=== PATIENT | female | born 1940 | race Caucasian/White ===

== ENCOUNTER 2021-04-08 10:29 | Inpatient (IN) ==
[2021-04-08] MEDS ORDERED: PANTOPRAZOLE 40 MG VIAL IV STA (10:58)
[2021-04-08 11:27] LABS: Basophils % 0.3 % (0.0-0.8); Eosinophils # 0.2 10*3/uL (0.0-0.87); Hematocrit 24.9 VOL% (35.7-47.0); Immature Granulocytes % 0.4 %; Immature Granulocytes Absolute 0.04 #; Lymphocytes # 1.2 10*3/uL (1.4-4.0); Lymphocytes % 13.5 % (21.3-54.2); Mean Corpuscular HGB Conc 32.1 GM/DL (32-36); Mean Corpuscular Volume 93.3 FL (87-102); Mean Platelet Volume 10.1 FL (9.6-12.0); Monocytes % 6.6 % (1.7-12.7); Neutrophils % 77.2 % (38.7-73.9); Platelet Count 233 T/CUMM (130-400); Red Blood Count 2.67 MC/CUMM (3.8-5.5); Red Cell Distribution Width 13.2 % (9.3-17.3); White Blood Count 8.9 T/CUMM (4-12)
[2021-04-08 11:49] LABS: Albumin 2.7 G/DL (3.4-5.0); Bilirubin,Total 0.5 MG/DL (0.20-1.00); Calcium 7.8 MG/DL (8.5-10.1); Osmolality,Calculated 293.1 MOS/KG (273-304); Potassium 3.8 MMOL/L (3.5-5.1); Total Protein 5.7 G/DL (6.4-8.2)
[2021-04-08 13:19] LABS: INR 1.1; Partial Thromboplastin Time 26.2 SECS (23.9-33.8)
[2021-04-08] MEDS ORDERED: GLUCAGON 1 MG VIAL IM PRN (14:34)
[2021-04-08] MEDS ORDERED: DEXTROSE 50% 25 GM/50 ML VIAL IV PRN (14:34)
[2021-04-08] MEDS ORDERED: BISACODYL 5 MG TABLET PO PRN (14:34)
[2021-04-08] MEDS ORDERED: ACETAMINOPHEN 325 MG TABLET PO PRN (14:34)
[2021-04-08] MEDS: ONDANSETRON 4 MG/2 ML VIAL IV PRN (15:49)
[2021-04-08] MEDS ORDERED: SODIUM CHLORIDE 0.9% 1,000 ML IV PRN (16:05)
[2021-04-08 18:07] LABS: Hemoglobin 7.1 GM/DL (12.0-16.0)
[2021-04-08] MEDS: SODIUM CHLORIDE 0.45% 1,000 ML IV SCH (18:17)
[2021-04-08 18:43] LABS: Folate 11.45 NG/ML (5.38-24.0)
[2021-04-08] MEDS: PANTOPRAZOLE 40 MG VIAL IV SCH (20:20)
[2021-04-09 05:31] LABS: Basophils % 0.4 % (0.0-0.8); Eosinophils # 0.2 10*3/uL (0.0-0.87); Hemoglobin 8.4 GM/DL (12.0-16.0); Immature Granulocytes % 0.5 %; Immature Granulocytes Absolute 0.04 #; Lymphocytes # 1.7 10*3/uL (1.4-4.0); Lymphocytes % 22.9 % (21.3-54.2); Mean Corpuscular HGB Conc 32.3 GM/DL (32-36); Mean Corpuscular Volume 93.2 FL (87-102); Mean Platelet Volume 10.4 FL (9.6-12.0); Monocytes % 10.6 % (1.7-12.7); Neutrophils % 62.6 % (38.7-73.9); Platelet Count 201 T/CUMM (130-400); Red Blood Count 2.79 MC/CUMM (3.8-5.5); Red Cell Distribution Width 13.8 % (9.3-17.3); White Blood Count 7.4 T/CUMM (4-12)
[2021-04-09 05:58] LABS: Calcium 7.8 MG/DL (8.5-10.1); Potassium 3.8 MMOL/L (3.5-5.1)
[2021-04-09 06:40] LABS: Hematocrit 27.5 VOL% (35.7-47.0); Hemoglobin 8.7 GM/DL (12.0-16.0)
[2021-04-09] MEDS ORDERED: NON-FORMULARY MEDICATION (Nebivolol [Bystolic] 20 mg Tablet) PO SCH (09:00)
[2021-04-09] MEDS: LEVOTHYROXINE 100 MCG TABLET PO SCH (10:24)
[2021-04-09] MEDS: SODIUM CHLORIDE 0.45% 1,000 ML IV SCH ×2 (10:25→20:30)
[2021-04-09] MEDS: PANTOPRAZOLE 40 MG VIAL IV SCH ×2 (10:25→20:18)
[2021-04-09] MEDS ORDERED: hydrALAZINE 20 MG/1 ML VIAL IV PRN (14:24)
[2021-04-09 15:08] LABS: Hematocrit 26.6 VOL% (35.7-47.0); Hemoglobin 8.3 GM/DL (12.0-16.0)
[2021-04-09] MEDS ORDERED: BISACODYL 5 MG TABLET PO SCH (16:00)
[2021-04-09] MEDS: METOPROLOL TARTRATE 25 MG TABLET PO SCH (21:43)
[2021-04-09 23:22] LABS: Hemoglobin 7.7 GM/DL (12.0-16.0)
[2021-04-10 05:37] LABS: Basophils % 0.4 % (0.0-0.8); Eosinophils # 0.2 10*3/uL (0.0-0.87); Eosinophils % 2.8 % (0.00-10.9); Hematocrit 23.5 VOL% (35.7-47.0); Hemoglobin 7.4 GM/DL (12.0-16.0); Immature Granulocytes % 0.5 %; Immature Granulocytes Absolute 0.04 #; Lymphocytes # 1.5 10*3/uL (1.4-4.0); Lymphocytes % 19.5 % (21.3-54.2); Mean Corpuscular HGB Conc 31.5 GM/DL (32-36); Mean Corpuscular Volume 92.9 FL (87-102); Mean Platelet Volume 10.2 FL (9.6-12.0); Monocytes % 8.3 % (1.7-12.7); Neutrophils % 68.5 % (38.7-73.9); Platelet Count 203 T/CUMM (130-400); Red Blood Count 2.53 MC/CUMM (3.8-5.5); Red Cell Distribution Width 14.1 % (9.3-17.3); White Blood Count 7.8 T/CUMM (4-12)
[2021-04-10 06:05] LABS: Calcium 7.9 MG/DL (8.5-10.1); Osmolality,Calculated 286.1 MOS/KG (273-304); Potassium 3.5 MMOL/L (3.5-5.1)
[2021-04-10 06:10] LABS: Risk Ratio 3.36; VLDL Cholesterol 33.2 MG/DL
[2021-04-10 07:55] LABS: Hematocrit 25.2 VOL% (35.7-47.0)
[2021-04-10] MEDS: LEVOTHYROXINE 100 MCG TABLET PO SCH (08:32)
[2021-04-10] MEDS: BISACODYL 5 MG TABLET PO SCH ×3 (08:33→23:55)
[2021-04-10] MEDS: METOPROLOL TARTRATE 25 MG TABLET PO SCH ×2 (08:34→20:38)
[2021-04-10] MEDS: PANTOPRAZOLE 40 MG VIAL IV SCH ×2 (08:35→20:38)
[2021-04-10] MEDS ORDERED: CHOLECALCIFEROL 5,000 UNIT TABLET PO SCH (09:00)
[2021-04-10] MEDS ORDERED: PREVAGEN PO SCH (09:00)
[2021-04-10] MEDS: SODIUM CHLORIDE 0.45% 1,000 ML IV SCH (09:40)
[2021-04-10] MEDS ORDERED: MAGNESIUM SULF RIDER 2 GM/50 ML PREMIX IV ONE (10:27)
[2021-04-10] MEDS: ATORVASTATIN 40 MG TABLET PO SCH (13:26)
[2021-04-10] MEDS ORDERED: POLYETHYLENE GLYCOL POWDER 255 GM BOTTLE PO ONE (18:00)
[2021-04-10] MEDS: ONDANSETRON 4 MG/2 ML VIAL IV PRN (20:37)
[2021-04-10] MEDS ORDERED: MAGNESIUM CITRATE 300 ML BOTTLE PO ONE (21:00)
[2021-04-11 04:53] LABS: Basophils % 0.5 % (0.0-0.8); Eosinophils # 0.3 10*3/uL (0.0-0.87); Eosinophils % 3.1 % (0.00-10.9); Hemoglobin 7.8 GM/DL (12.0-16.0); Immature Granulocytes % 0.4 %; Immature Granulocytes Absolute 0.03 #; Lymphocytes # 1.4 10*3/uL (1.4-4.0); Lymphocytes % 17.2 % (21.3-54.2); Mean Corpuscular HGB Conc 32.5 GM/DL (32-36); Mean Corpuscular Volume 93.8 FL (87-102); Mean Platelet Volume 10.1 FL (9.6-12.0); Monocytes % 9.9 % (1.7-12.7); Neutrophils % 68.9 % (38.7-73.9); Platelet Count 218 T/CUMM (130-400); Red Blood Count 2.56 MC/CUMM (3.8-5.5); Red Cell Distribution Width 14.1 % (9.3-17.3); White Blood Count 8.3 T/CUMM (4-12)
[2021-04-11 05:54] LABS: Calcium 8.6 MG/DL (8.5-10.1); Osmolality,Calculated 283.3 MOS/KG (273-304); Potassium 2.8 MMOL/L (3.5-5.1)
[2021-04-11] MEDS: POTASSIUM CHLORIDE RIDER 10 MEQ/100 ML PREMIX IV PRN ×3 (06:39→17:22)
[2021-04-11] MEDS: SODIUM CHLORIDE 0.45% 1,000 ML IV SCH (06:39)
[2021-04-11] MEDS: LEVOTHYROXINE 100 MCG TABLET PO SCH ×2 (08:33→09:18)
[2021-04-11] MEDS: ATORVASTATIN 40 MG TABLET PO SCH (09:10)
[2021-04-11] MEDS: METOPROLOL TARTRATE 25 MG TABLET PO SCH ×2 (09:10→20:34)
[2021-04-11] MEDS: PANTOPRAZOLE 40 MG VIAL IV SCH ×2 (09:18→20:35)
[2021-04-11] MEDS: POTASSIUM CHLORIDE RIDER 10 MEQ/100 ML PREMIX IV SCH ×3 (10:48→17:36)
[2021-04-11] MEDS ORDERED: LIDOCAINE 2% 5 ML VIAL ONE (12:49)
[2021-04-11] MEDS ORDERED: propofoL 200 MG/20 ML VIAL IV ONE ×2 (12:49→13:14)
[2021-04-11] MEDS: LACTATED RINGERS 1,000 ML IV SCH (12:55)
[2021-04-11] MEDS ORDERED: PHENYLEPHRINE 1 MG/10 ML SYRINGE IV ONE (13:31)
[2021-04-12 09:07] LABS: Basophils % 0.6 % (0.0-0.8); Eosinophils # 0.4 10*3/uL (0.0-0.87); Eosinophils % 5.6 % (0.00-10.9); Hematocrit 24.4 VOL% (35.7-47.0); Hemoglobin 7.6 GM/DL (12.0-16.0); Immature Granulocytes % 0.3 %; Immature Granulocytes Absolute 0.02 #; Lymphocytes # 1.3 10*3/uL (1.4-4.0); Lymphocytes % 20.5 % (21.3-54.2); Mean Corpuscular HGB Conc 31.1 GM/DL (32-36); Mean Corpuscular Volume 95.3 FL (87-102); Mean Platelet Volume 9.9 FL (9.6-12.0); Monocytes % 9.3 % (1.7-12.7); Neutrophils % 63.7 % (38.7-73.9); Platelet Count 224 T/CUMM (130-400); Red Blood Count 2.56 MC/CUMM (3.8-5.5); Red Cell Distribution Width 14.5 % (9.3-17.3); White Blood Count 6.4 T/CUMM (4-12)
[2021-04-12 09:40] LABS: Calcium 8.1 MG/DL (8.5-10.1); Potassium 3.7 MMOL/L (3.5-5.1)
[2021-04-12] MEDS: LEVOTHYROXINE 100 MCG TABLET PO SCH (09:59)
[2021-04-12] MEDS: METOPROLOL TARTRATE 25 MG TABLET PO SCH (09:59)
[2021-04-12] MEDS: ATORVASTATIN 40 MG TABLET PO SCH (09:59)
[2021-04-12] MEDS: PANTOPRAZOLE 40 MG VIAL IV SCH (10:03)
[2021-04-12 14:23] VITALS: BP 112/75
[2021-04-12] MEDS: SODIUM CHLORIDE 0.45% 1,000 ML IV SCH (14:24)
[2021-04-12] MEDS: LACTATED RINGERS 1,000 ML IV SCH (14:24)
== END 2021-04-12 14:20 | DRG 813 ==
LOC: EDUNIT# → EDBD → N.ED 10:29 → N.EDINP 15:34 → SUATTDRO 15:34 → N.EDINP 15:52 → N.4E 17:37
PROVIDERS: ADMIT Internal Medicine; ATTEND Internal Medicine

== ENCOUNTER 2021-04-17 08:10 | Inpatient (IN) ==
[2021-04-17 09:09] LABS: Basophils # 0.1 10*3/uL (0.0-0.2); Basophils % 0.5 % (0.0-0.8); Eosinophils # 0.3 10*3/uL (0.0-0.87); Eosinophils % 2.8 % (0.00-10.9); Hematocrit 25.5 VOL% (35.7-47.0); Hemoglobin 7.9 GM/DL (12.0-16.0); Immature Granulocytes % 0.5 %; Immature Granulocytes Absolute 0.05 #; Lymphocytes % 10.3 % (21.3-54.2); Mean Corpuscular Volume 95.9 FL (87-102); Mean Platelet Volume 9.7 FL (9.6-12.0); Monocytes % 5.7 % (1.7-12.7); Neutrophils % 80.2 % (38.7-73.9); Platelet Count 349 T/CUMM (130-400); Red Blood Count 2.66 MC/CUMM (3.8-5.5); White Blood Count 9.6 T/CUMM (4-12)
[2021-04-17 09:42] LABS: Albumin 3.2 G/DL (3.4-5.0); Bilirubin,Total 0.6 MG/DL (0.20-1.00); Calcium 8.5 MG/DL (8.5-10.1); Osmolality,Calculated 279.5 MOS/KG (273-304); Potassium 3.5 MMOL/L (3.5-5.1); Total Protein 6.2 G/DL (6.4-8.2)
[2021-04-17 10:23] LABS: Bilirubin,Urine Negative (Negative); Blood, Urine Negative (Negative); Glucose,Urine (UA) Negative (Negative); Ketones,Urine Negative (Negative); Mucus,Urine Occasional /LPF (Occasional); Nitrite,Urine Negative (Negative); Protein,Urine Negative; RBC,Urine <1 /HPF (0-4); Squamous Epithelial Cell,Urine Occasional /HPF (0-10); Urine Appearance CLEAR (Clear); Urine Color Straw (Yellow); Urine Specific Gravity 1.012 (1.001-1.035); Urine Urobilinogen < 2.0 EU/DL (0.2-1.0)
[2021-04-17] MEDS ORDERED: FUROSEMIDE 40 MG/4 ML VIAL IV STA (11:05)
[2021-04-17] MEDS ORDERED: DEXTROSE 50% 25 GM/50 ML VIAL IV PRN (11:38)
[2021-04-17] MEDS ORDERED: GLUCAGON 1 MG VIAL IM PRN (11:38)
[2021-04-17] MEDS: METOPROLOL TARTRATE 100 MG TABLET PO SCH (12:48)
[2021-04-17] MEDS: FUROSEMIDE 40 MG/4 ML VIAL IV SCH (17:08)
[2021-04-17] MEDS: cloNIDine 0.1 MG TABLET PO SCH (20:53)
[2021-04-17] MEDS ORDERED: APIXABAN 5 MG TABLET PO SCH (21:00)
[2021-04-18 05:55] LABS: Hematocrit 26.2 VOL% (35.7-47.0)
[2021-04-18 06:16] LABS: Calcium 8.7 MG/DL (8.5-10.1); Osmolality,Calculated 283.4 MOS/KG (273-304); Potassium 3.1 MMOL/L (3.5-5.1)
[2021-04-18] MEDS ORDERED: LEVOTHYROXINE 100 MCG TABLET PO SCH (06:30)
[2021-04-18] MEDS ORDERED: MAGNESIUM SULF RIDER 4 GM/100 ML PREMIX IV PRN (07:38)
[2021-04-18] MEDS ORDERED: MAGNESIUM SULF RIDER 2 GM/50 ML PREMIX IV PRN (07:38)
[2021-04-18] MEDS: POTASSIUM CHLORIDE 20 MEQ TABLET PO PRN ×2 (08:45→11:53)
[2021-04-18] MEDS: FUROSEMIDE 40 MG/4 ML VIAL IV SCH (08:49)
[2021-04-18] MEDS ORDERED: ASPIRIN EC 81 MG TABLET PO SCH (09:00)
[2021-04-18] MEDS: ROSUVASTATIN 20 MG TABLET PO SCH (10:30)
[2021-04-18] MEDS: cloNIDine 0.1 MG TABLET PO SCH (10:30)
[2021-04-18] MEDS: METOPROLOL TARTRATE 100 MG TABLET PO SCH (10:31)
[2021-04-18] MEDS: PANTOPRAZOLE 40 MG TABLET PO SCH (10:31)
[2021-04-18 12:00] LABS: CKMB % 8.1 %
[2021-04-18] MEDS ORDERED: cloNIDine 0.1 MG TABLET PO PRN (14:10)
[2021-04-18] MEDS ORDERED: GABAPENTIN 100 MG CAPSULE PO SCH (21:00)
[2021-04-18] MEDS ORDERED: [UNRECOGNIZED DRUG - OTHER] PO SCH (21:00)
[2021-04-18] MEDS ORDERED: DEXLANSOPRAZOLE 60 MG PO SCH (21:00)
[2021-04-18] MEDS ORDERED: MONTELUKAST 10 MG TABLET PO SCH (21:00)
[2021-04-18] MEDS: METOPROLOL TARTRATE 25 MG TABLET PO SCH (21:02)
[2021-04-19] MEDS ORDERED: LEVOTHYROXINE 100 MCG TABLET PO SCH (06:30)
[2021-04-19 07:17] LABS: Basophils # 0.1 10*3/uL (0.0-0.2); Basophils % 0.7 % (0.0-0.8); Eosinophils # 0.3 10*3/uL (0.0-0.87); Eosinophils % 3.6 % (0.00-10.9); Hematocrit 26.4 VOL% (35.7-47.0); Hemoglobin 8.4 GM/DL (12.0-16.0); Immature Granulocytes % 0.3 %; Immature Granulocytes Absolute 0.02 #; Lymphocytes # 1.4 10*3/uL (1.4-4.0); Lymphocytes % 18.9 % (21.3-54.2); Mean Corpuscular HGB Conc 31.8 GM/DL (32-36); Mean Platelet Volume 9.9 FL (9.6-12.0); Monocytes % 10.7 % (1.7-12.7); Neutrophils % 65.8 % (38.7-73.9); Platelet Count 353 T/CUMM (130-400); Red Blood Count 2.78 MC/CUMM (3.8-5.5); White Blood Count 7.2 T/CUMM (4-12)
[2021-04-19 07:33] LABS: Osmolality,Calculated 289.1 MOS/KG (273-304); Potassium 3.3 MMOL/L (3.5-5.1)
[2021-04-19] MEDS: POTASSIUM CHLORIDE 20 MEQ TABLET PO PRN ×3 (08:33→12:34)
[2021-04-19] MEDS: PANTOPRAZOLE 40 MG TABLET PO SCH (08:33)
[2021-04-19] MEDS: ROSUVASTATIN 20 MG TABLET PO SCH (08:33)
[2021-04-19] MEDS: METOPROLOL TARTRATE 25 MG TABLET PO SCH (08:38)
[2021-04-19] MEDS ORDERED: IRON (CARBONYL)/VIT C/B12/FA TABLET PO SCH (09:00)
[2021-04-19] MEDS ORDERED: VENLAFAXINE XR 75 MG CAPSULE PO SCH (09:00)
[2021-04-19] MEDS ORDERED: METOPROLOL TARTRATE 50 MG TABLET PO SCH (09:00)
[2021-04-19] MEDS ORDERED: AMIODARONE 200 MG TABLET PO SCH (09:30)
[2021-04-19 11:31] VITALS: BP 119/60
== END 2021-04-19 14:02 | DRG 280 ==
LOC: EDUNIT# → EDBD → N.EDINP 08:10 → N.ED 08:10 → SUATTDRO 11:38 → N.TELES 12:19
PROVIDERS: ADMIT Internal Medicine Geriatric Medicine; ATTEND Internal Medicine